=== PATIENT | female | born 1965 | race American Indian/Alaskan Native ===

== ENCOUNTER 2016-10-14 07:29 | Day surgery (SDC) | payer OTHER ==
[2016-10-14] MEDS ORDERED: Lactated Ringer's 500 ML IV ONE (07:50)
[2016-10-14 09:11] VITALS: O2SAT 98
[2016-10-14] MEDS ORDERED: Propofol 10 mg/ml Inj (20 ML) ONE (10:17)
[2016-10-14 10:49] VITALS: TEMP 97
[2016-10-14 11:00] VITALS: BP 99/57; PULSE 87; RESP 21
== END 2016-10-14 11:27 | disposition home or self-care (01) ==
LOC: H.ENDO 07:29
PROVIDERS: ATTEND Internal Medicine Gastroenterology
DX: Z12.11 Encounter for screening for malignant neoplasm of colon (principal); K57.30 Diverticulosis of large intestine without perforation or abscess without bleeding
CPT/HCPCS: 45378; 82948; J2001; J2704; J7120